=== PATIENT | female | born 1985 | race Caucasian/White ===

== ENCOUNTER 2017-04-23 17:04 | Inpatient (IN) | payer BC, OTHER ==
[~2017-04-23] VITALS: Ht 160 cm; Wt 40.8 kg
[2017-04-23] MEDS ORDERED: NICOTINE 14 MG/24HR PATCH TD PRN (21:15)
[2017-04-23] MEDS ORDERED: ACETAMINOPHEN 325 MG TABLET PO PRN (21:15)
[2017-04-23] MEDS ORDERED: MIRALAX 17 GM POWD.PACK PO PRN (21:15)
[2017-04-23] MEDS ORDERED: ONDANSETRON 4 MG/2 ML VIAL IM PRN (21:15)
[2017-04-23] MEDS ORDERED: LORAZEPAM 2 MG/1 ML VIAL IM PRN (21:15)
[2017-04-23] MEDS ORDERED: METHOCARBAMOL 750 MG TABLET PO PRN (21:15)
[2017-04-23] MEDS ORDERED: LORAZEPAM 1 MG TABLET PO PRN (21:15)
[2017-04-23] MEDS ORDERED: DICYCLOMINE HCL 20 MG TABLET PO PRN (21:15)
[2017-04-23] MEDS ORDERED: NICOTINE POLACRILEX 4 MG GUM-PK OF TEN BC PRN (21:15)
[2017-04-23] MEDS ORDERED: MAGNESIUM HYDROXIDE 30 ML LIQUID UDC PO PRN (21:15)
[2017-04-23] MEDS ORDERED: LOPERAMIDE HCL 2 MG CAPSULE PO PRN ×2 (21:15)
[2017-04-23] MEDS ORDERED: ONDANSETRON ODT 4 MG TAB.RAPDIS SL PRN (21:15)
[2017-04-23 22:28] LABS: *AMPHETAMINE, URINE POSITIVE (NEGATIVE); *BARBITURATE, URINE NEGATIVE (NEGATIVE); *CANNABINOID, URINE POSITIVE (NEGATIVE); *COCCAINE, URINE NEGATIVE (NEGATIVE); *OPIATE, URINE POSITIVE (NEGATIVE); *PHENCYCLIDINE SCREEN,URINE NEGATIVE (NEGATIVE)
[2017-04-23] MEDS ORDERED: TOPIRAMATE 100 MG TABLET PO SCH (22:30)
[2017-04-23] MEDS: CLONIDINE HCL 0.1 MG TABLET PO PRN (23:33)
[2017-04-23] MEDS: diphenhydrAMINE 50 MG CAPSULE PO PRN (23:33)
[2017-04-23] MEDS: LORAZEPAM 1 MG TABLET PO PRN (23:33)
[2017-04-24] VITALS: BP 106/78
[2017-04-24 00:01] LABS: BASOPHILS % (AUTO) 0.3 % (0.0-2.0); EOSINOPHILS % (AUTO) 0.3 % (0.0-7.0); HEMATOCRIT 36.9 % (31.2-41.9); HEMOGLOBIN 12.6 g/dL (10.9-14.3); LYMPHOCYTES # (AUTO) 1.7 K/uL (20.0-40.0); LYMPHOCYTES % (AUTO) 15.9 % (20.5-51.5); MEAN CORPUSCULAR HEMOGLOBIN 29.5 uug (24.7-32.8); MEAN CORPUSCULAR HGB CONC 34 g/dL (32.3-35.6); MEAN CORPUSCULAR VOLUME 86.8 fL (75.5-95.3); MONOCYTES # (AUTO) 0.7 K/uL (2.0-10.0); MONOCYTES % (AUTO) 6.5 % (0.0-11.0); NEUTROPHILS # (AUTO) 8.4 K/uL (1.8-8.9); PLATELET COUNT (AUTO) 308 K/uL (179-408); RED BLOOD CELL COUNT(AUTO) 4.25 MIL/uL (3.63-4.92); WHITE BLOOD COUNT (AUTO) 10.8 K/uL (3.8-11.8)
[2017-04-24 00:22] LABS: ALANINE AMINOTRANSFERASE 20 U/L (14-59); ALKALINE PHOSPHATASE 55 U/L (50-136); ASPARTATE AMINOTRANSFERASE 21 U/L (15-37); BILIRUBIN,TOTAL 0.6 mg/dL (0.2-1.0); CARBON DIOXIDE 22 mmol/L (21-32); CHLORIDE 100 mmol/L (98-107); CREATININE 1.2 mg/dL (0.6-1.3); GLUCOSE 74 mg/dL (74-106); MAGNESIUM 1.7 mg/dL (1.8-2.4); POTASSIUM 3.5 mmol/L (3.5-5.1); TOTAL PROTEIN, SERUM 7.9 g/dL (6.4-8.2); UREA NITROGEN, BLOOD 23 mg/dL (7-18)
[2017-04-24 00:31] LABS: ETHANOL < 3 MG/DL (0-0); THYROID STIMULATING HORMONE 1.326 mIU/mL (0.358-3.740)
[2017-04-24 01:16] LABS: *URINE HCG, QUAL NEGATIVE (NEGATIVE)
[2017-04-24] MEDS ORDERED: FLUO10TA PO (01:35)
[2017-04-24] MEDS ORDERED: TOPI100T38 PO (01:35)
[2017-04-24] MEDS ORDERED: ARIP10TA17 PO (01:35)
[2017-04-24] MEDS ORDERED: ZOLP10TA6 PO (01:35)
[2017-04-24] MEDS ORDERED: TOPI200T PO (01:35)
[2017-04-24] MEDS ORDERED: DIPH25CA83 PO (01:35)
[2017-04-24] MEDS ORDERED: ALPR0.5T8 PO (01:35)
[2017-04-24] MEDS ORDERED: ONDA8TAB13 PO (01:35)
[2017-04-24] MEDS ORDERED: PROP40TA7 PO ×2 (01:35→01:45)
[2017-04-24] MEDS ORDERED: AMPH15TA2 PO (01:45)
[2017-04-24] MEDS ORDERED: METH20TA PO (01:45)
[2017-04-24 04:00] VITALS: BP 90/53
[2017-04-24] MEDS ORDERED: PNEUMOCOCCAL 23-VAL P-SAC VAC 0.5 ML VIAL IM ONE (04:00)
[2017-04-24 08:00] VITALS: BP 107/71
[2017-04-24] MEDS: THIAMINE HCL 100 MG TABLET PO SCH (08:30)
[2017-04-24] MEDS: HYDROXYZINE PAMOATE 25 MG CAPSULE PO PRN (08:30)
[2017-04-24] MEDS: FOLIC ACID 1 MG TABLET PO SCH (08:30)
[2017-04-24] MEDS: CLONIDINE HCL 0.1 MG TABLET PO PRN (08:31)
[2017-04-24] MEDS: MULTIVITAMINS,THERAPEUTIC TABLET PO SCH (08:31)
[2017-04-24] MEDS ORDERED: TUBERCULIN,PURIF.PROT.DERIV. 5 TU/0.1 ML TEST ID ONE (09:00)
[2017-04-24] MEDS ORDERED: MAGNESIUM OXIDE 400 MG TABLET PO ONE (09:00)
[2017-04-24] MEDS ORDERED: FLUOXETINE HCL 20 MG CAPSULE PO SCH (09:15)
[2017-04-24] MEDS ORDERED: ARIPIPRAZOLE 10 MG TABLET PO SCH (09:15)
[2017-04-24] MEDS ORDERED: TOPIRAMATE 100 MG TABLET PO SCH ×3 (09:15→21:00)
[2017-04-24] MEDS ORDERED: ARIPIPRAZOLE 5 MG TABLET PO SCH (09:23)
[2017-04-24 12:00] VITALS: BP 105/65
[2017-04-24] MEDS: LORAZEPAM 1 MG TABLET PO PRN ×2 (12:17→17:54)
[2017-04-24 16:00] VITALS: BP 102/69
[2017-04-24] MEDS: BACLOFEN 20 MG TABLET PO PRN (16:54)
[2017-04-24 20:00] VITALS: BP 95/56
[2017-04-24] MEDS: FLUOXETINE HCL 10 MG CAPSULE PO SCH (20:35)
[2017-04-24] MEDS: TOPIRAMATE 100 MG TABLET PO SCH (20:35)
[2017-04-25 07:08] LABS: HEPATITIS B SURFACE AG Negative (Negative)
[2017-04-25] MEDS: MULTIVITAMINS,THERAPEUTIC TABLET PO SCH (08:07)
[2017-04-25] MEDS: THIAMINE HCL 100 MG TABLET PO SCH (08:07)
[2017-04-25] MEDS: FOLIC ACID 1 MG TABLET PO SCH (08:07)
[2017-04-25] MEDS: HYDROXYZINE PAMOATE 25 MG CAPSULE PO PRN (08:07)
[2017-04-25] MEDS: CLONIDINE HCL 0.1 MG TABLET PO PRN (08:08)
[2017-04-25] MEDS: BACLOFEN 20 MG TABLET PO PRN (08:11)
[2017-04-25] MEDS ORDERED: LORAZEPAM 1 MG TABLET PO ONE (09:15)
[2017-04-25 10:23] VITALS: BP 105/66
[2017-04-25 12:28] VITALS: BP 98/63
[2017-04-25] MEDS ORDERED: LORAZEPAM 1 MG TABLET PO PRN ×2 (14:15)
[2017-04-25] MEDS: LORAZEPAM 1 MG TABLET PO SCH ×2 (14:23→20:15)
[2017-04-25] MEDS: GABAPENTIN 300 MG CAPSULE PO SCH ×2 (14:24→20:14)
[2017-04-25 18:22] VITALS: BP 92/60
[2017-04-25 20:00] VITALS: BP 98/56
[2017-04-25] MEDS: TOPIRAMATE 100 MG TABLET PO SCH (20:14)
[2017-04-25] MEDS: FLUOXETINE HCL 10 MG CAPSULE PO SCH (20:15)
[2017-04-25] MEDS: ARIPIPRAZOLE 5 MG TABLET PO SCH (20:15)
[2017-04-25] MEDS: IBUPROFEN 600 MG TABLET PO PRN (20:15)
[2017-04-26 08:00] VITALS: BP 109/72
[2017-04-26] MEDS ORDERED: LORAZEPAM 1 MG TABLET PO SCH (09:00)
[2017-04-26] MEDS: GABAPENTIN 300 MG CAPSULE PO SCH (09:16)
[2017-04-26] MEDS: MULTIVITAMINS,THERAPEUTIC TABLET PO SCH (09:16)
[2017-04-26] MEDS: FOLIC ACID 1 MG TABLET PO SCH (09:16)
[2017-04-26] MEDS: THIAMINE HCL 100 MG TABLET PO SCH (09:16)
[2017-04-26 12:25] VITALS: BP 94/66
[2017-04-26] MEDS: GABAPENTIN 400 MG CAPSULE PO SCH ×2 (15:01→21:41)
[2017-04-26 16:58] VITALS: BP 108/76
[2017-04-26] MEDS: CLONIDINE HCL 0.1 MG TABLET PO PRN (17:10)
[2017-04-26] MEDS: HYDROXYZINE PAMOATE 25 MG CAPSULE PO PRN (17:10)
[2017-04-26] MEDS ORDERED: BACL20TA PO (17:36)
[2017-04-26] MEDS ORDERED: IBUP-1955 PO (17:36)
[2017-04-26] MEDS ORDERED: DIPH50CA37 PO (17:36)
[2017-04-26] MEDS ORDERED: CLON0.1T14 PO (17:36)
[2017-04-26] MEDS ORDERED: HYDR-3895 PO (17:36)
[2017-04-26] MEDS ORDERED: GABA-536 PO (17:36)
[2017-04-26] MEDS ORDERED: NICO-671 TD (17:36)
[2017-04-26] MEDS ORDERED: DICY20TA28 PO (17:36)
[2017-04-26 20:00] VITALS: BP 90/52
[2017-04-26] MEDS: FLUOXETINE HCL 10 MG CAPSULE PO SCH (21:41)
[2017-04-26] MEDS: TOPIRAMATE 100 MG TABLET PO SCH (21:41)
[2017-04-26] MEDS: diphenhydrAMINE 50 MG CAPSULE PO PRN (21:41)
[2017-04-26] MEDS: ARIPIPRAZOLE 5 MG TABLET PO SCH (21:41)
[2017-04-26] MEDS: IBUPROFEN 600 MG TABLET PO PRN (21:46)
[2017-04-26] MEDS: BACLOFEN 20 MG TABLET PO PRN (21:46)
[2017-04-27 04:00] VITALS: BP 84/52
[2017-04-27 08:00] VITALS: BP 123/75
[2017-04-27] MEDS: FOLIC ACID 1 MG TABLET PO SCH (08:22)
[2017-04-27] MEDS: MULTIVITAMINS,THERAPEUTIC TABLET PO SCH (08:28)
[2017-04-27] MEDS: THIAMINE HCL 100 MG TABLET PO SCH (08:28)
[2017-04-27] MEDS: GABAPENTIN 400 MG CAPSULE PO SCH (08:29)
== END 2017-04-27 09:24 | disposition other institution (70) | DRG 895 ==
LOC: SRC 21:48
PROVIDERS: ADMIT Internal Medicine; ATTEND Internal Medicine
PROC: HZ2ZZZZ Detoxification Services for Substance Abuse Treatment (ICD-10-PCS; principal; 2017-04-23)
PROC: HZ41ZZZ Group Counseling for Substance Abuse Treatment, Behavioral (ICD-10-PCS; 2017-04-24)
PROC: HZ31ZZZ Individual Counseling for Substance Abuse Treatment, Behavioral (ICD-10-PCS; 2017-04-26)
DX: F11.23 Opioid dependence with withdrawal (principal); E83.42 Hypomagnesemia; F31.60 Bipolar disorder, current episode mixed, unspecified; F13.239 Sedative, hypnotic or anxiolytic dependence with withdrawal, unspecified; E86.0 Dehydration; F10.10 Alcohol abuse, uncomplicated; Y90.9 Presence of alcohol in blood, level not specified; F90.9 Attention-deficit hyperactivity disorder, unspecified type; Z91.5 Personal history of self-harm; F17.290 Nicotine dependence, other tobacco product, uncomplicated; Z87.442 Personal history of urinary calculi; Z81.8 Family history of other mental and behavioral disorders; Z81.1 Family history of alcohol abuse and dependence; G43.909 Migraine, unspecified, not intractable, without status migrainosus; F50.9 Eating disorder, unspecified; F41.9 Anxiety disorder, unspecified; Z79.899 Other long term (current) drug therapy; Z91.89 Other specified personal risk factors, not elsewhere classified
CPT/HCPCS: 36415; 70030-TC; 80307; 80324; 80349; 80361; 83735; 84443; 84703; 85025; 86580; 86592; 86705; 86803; 87340; 87806; A4663; G0480; Q0162; Q0163